=== PATIENT | male | born 1940 | race Caucasian/White ===

== ENCOUNTER 2017-06-21 11:36 | Observation (INO) | payer MEDICARE, OTHER ==
[2017-06-21 12:05] LABS: #Eosinphils 0.2 thou/uL (0.0-0.7); #Lymphocytes 1.2 thou/uL (1.20-3.40); #Monocytes 0.6 thou/uL (0.11-0.59); #Neutrophils 3.7 thou/uL (1.40-6.50); %Basophils 0.4 % (0.0-1.0); %Eosinophils 3.8 % (0.0-10.0); %Lymphocytes 20.4 % (21.0-51.0); %Monocytes 10.8 % (0.0-10.0); Hematocrit 38.8 % (42.0-52.0); Mean Platelet Volume 7.8 fL (7.4-10.4); Red Blood Cell (RBC) Count 3.96 mill/uL (4.70-6.10); White Blood Cell (WBC) Count 5.7 thou/uL (4.8-10.8)
--- NOTE | 2017-06-21 12:16 | RAD ---
RADIOGRAPH CHEST 1 VIEW: HISTORY: 77-year-old male with acute left sided chest pain. FINDINGS: There is hyperinflation of the lungs, consistent with COPD. The thoracic aorta is tortuous and ectat ic. There is no evidence of air space density, pneumothorax, or pulmonary edema. The lateral costop hrenic angles are sharp. There is no cardiomegaly. There are multiple old, healed left rib fracture d eformities. There are sternotomy wires. There are small regions of fibrotic, chronic interstitial den sities at the lateral aspects of the bilateral lung bases. IMPRESSION: 1) No acute pulmonary findings. 2) Emphysema. 3) Ectasia of thoracic aorta. 4) Evidence of previous open heart surgery. 5) Multiple old, healed left rib fracture deformities. 6) Chronic fibrotic changes at the bilateral lung bases. brittni POS: L[facility]
[2017-06-21 12:23] LABS: ALT (SGPT) 11 U/L (8-55); AST (SGOT) 19 U/L (5-34); Alkaline Phosphatase 81 U/L (40-150); Anion Gap 12 mmol/L (10-20); BUN (Urea Nitrogen) 18 mg/dL (8.4-25.7); Bilirubin, Total 0.5 mg/dL (0.2-1.2); CK (CPK) 134 U/L (30-200); Calc. Creatinine Clearance 0 mL/min (70-130); Calcium 9.3 mg/dL (7.8-10.44); Carbon Dioxide 30 mmol/L (23-31); Chloride 102 mmol/L (98-107); Estimated GFR-MDRD 69; Globulin 3.1 g/dL (2.4-3.5); Protein, Total 7.2 g/dL (5.8-8.1)
[2017-06-21 15:15] LABS: Troponin I 0.013 ng/mL (< 0.028)
[2017-06-21] MEDS ORDERED: Ondansetron ODT 4 MG TAB PO PRN (15:47)
[2017-06-21] MEDS ORDERED: Bisacodyl 5 MG TAB PO PRN (15:47)
[2017-06-21] MEDS ORDERED: Ondansetron HCl/PF 4 MG/2 ML Vial IVP PRN (15:47)
[2017-06-21] MEDS ORDERED: Nitroglycerin 0.4 MG TAB (25 Tab Bottle) PO PRN (15:47)
[2017-06-21 16:10] VITALS: BMI 23.3
[2017-06-21] MEDS ORDERED: Aspirin 325 MG TAB PO SCH (16:15)
[2017-06-21] MEDS: hydrALAZINE 20 MG/ML VIAL SLOW IVP PRN (16:16)
--- NOTE | 2017-06-21 19:28 | HP ---
PRIMARY CARE PHYSICIAN: Fatemeh Sarmiento M.D. PRIMARY PRODUCTION PLANNING MANAGER: Dr. Hui. CHIEF COMPLAINT: Chest pain. HISTORY OF PRESENT ILLNESS: This is a 77-year-old white male with a known history of coronary artery disease, who had a CABG done in 2011, 4 vessels. He has not had any problems with his heart since , but until the last 2-3 months the patient started having episodes of chest pain, left-sided, sha rp in nature and typically lasting less than 30 minutes, he has been getting these every 1-2 weeks. Does not seem to be influenced by rest or activity, then 3 days ago on Tuesday the patient was sitti ng down and watching TV and had a sudden onset of left-sided chest pain, stabbing pain from the anter ior lower left chest and then radiating up into the left axilla. The pain was persistent, lasted abo ut 30 minutes, associated with nausea with vomiting once and with breaking out into a profuse sweat, this eventually resolved, his daughter want him to go to the emergency room, but then he decided to s jessica home. He did not really have any episodes on Tuesday, he had another episode on Tuesday and then t his morning the patient had a repeat episode then again had nausea and vomiting and he decided to com e into the Dr. Hui's office. Dr. Hui was not there and the office staff told him to go str aight to the emergency room. In the ER, he had some improvement in his chest pain, uncertain it was related to the medications given. Now, he is just having hiccups. His EKG did not show any acute ch anges, just a right bundle branch block. His first cardiac marker set was negative. PAST MEDICAL HISTORY: 1. Coronary artery disease. 2. Carotid stenosis. 3. Benign prostatic hyperplasia. 4. Hypertension. 5. Hyperlipidemia. 6. Some question of atrial fibrillation, it was told by the nurse at Dr. Hui's office that he h ad atrial fibrillation, but he had never been told that before and he came to the ER. 7. Chronic low back problems from multiple traumas. PAST SURGICAL HISTORY: 1. CABG x4 vessels in 2011. 2. Prostate resection in 2011. 3. Right carotid endarterectomy in 2011. ALLERGIES: PENICILLIN causes severe problems with his mouth and throat. CURRENT MEDICATIONS: 1. Lisinopril 10 mg daily. 2. Metoprolol 50 mg extended release daily. 3. Docusate 50 mg daily. 4. Protonix 40 mg daily. 5. Tamsulosin 0.4 mg daily. 6. Atorvastatin 40 mg daily. 7. Centrum Silver 1 tablet daily. 8. Aspirin 81 mg daily. SOCIAL HISTORY: The patient smoked for about 15 years and quit in 1970s. 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 No alcohol or illicit drug use. FAMILY HISTORY: One brother from Alzheimer's, one brother from heart attack in his 60s. REVIEW OF SYSTEMS: Constitutional: No fevers, no chills, no weight changes. Eyes: No double visio n or blurred vision. He has chronic poor eyesight. ENT: No congestion, drainage or sore throat. C ardiovascular: See HPI. No palpitations. Pulmonary: No wheezing or shortness of breath. He does have chronic what he considered as allergic cough, worse at night. Gastrointestinal: Previously had nausea and vomiting, not now. No abdominal pain, no dyspepsia, no diarrhea. He does have chronic c onstipation. Genitourinary: No dysuria or hematuria. Musculoskeletal: The patient has chronic mus jazzmine aches and joint pains all over as worse in his back. He also reports that he has some problems w ith weakness in his left leg since an injury years ago and stumbles and falls sometimes. Skin: No r ashes or other lesions that he has noticed. Neurologic: No numbness, tingling or focal weakness. PHYSICAL EXAMINATION: VITAL SIGNS: Blood pressure 176/105, pulse 62, respirations 18, O2 sat 100% on room air, temperature 98.0. GENERAL: This is a well-developed, well-nourished, white male, in no apparent distress. HEENT: Eyes: Pupils are equal, round, and reactive to light. Oropharynx is clear without lesions, erythema or exudate. NECK: Supple, no lymphadenopathy, no thyroid nodules or enlargement, no JVD. HEART: Regular rate and rhythm, no murmurs, rubs or gallops. LUNGS: He has bilateral dry crackles in the bases and occasional expiratory wheezes scattered throug hout. No increased work of breathing. ABDOMEN: Soft, nontender to palpation, normoactive bowel sounds, no hepatosplenomegaly or other mass es. EXTREMITIES: No clubbing, cyanosis or edema. SKIN: No rashes or other lesions. NEUROLOGIC: Cranial nerves intact and equal bilaterally. No facial droop. Deep tendon reflexes are 2+ in all extremities. The patient does have mild decreased strength in his left lower extremity, w hich he states is chronic. PSYCHIATRIC: Alert and oriented x3, normal mood and affect. Normal insight and judgment. LABORATORY DATA: CBC with a hemoglobin of 13, hematocrit of 38, the remainder is normal. Complete m etabolic panel is within normal limits. Cardiac marker set negative x2. EKG: I did review the EKG done in the emergency room, it does show normal sinus rhythm with left axis deviation and a right bun dle branch block. No significant ST elevation or depression. Chest x-ray: I did review the chest x -ray done in the emergency room along with the radiologist's report, it does show hyperinflation of t he lungs consistent with COPD and emphysema. There is multiple old healed left rib fractures, some c hronic fibrotic changes in the bases of the lungs and then a previous open heart surgery with sternot ric wires, no pneumonia or acute changes visualized. ASSESSMENT AND PLAN: 1. Chest pain. The patient does have a history of coronary artery disease with previous bypass. Gi juan the diaphoresis, nausea and vomiting with this chest pain is concerning for acute coronary syndro me. The patient has negative enzymes thus far. His chest pain is currently resolved. He will need a Cardiology consult on either stress test or catheterization that worked this up. We will consult Yossi Dsouza, who is cardiac rehabilitation program director for Dr. Hui. 2. Known coronary artery disease with coronary artery bypass graft. We will put patient on daily as pirin and we will resume his home medications. 3. Hypertension, currently uncontrolled. We will resume patient's home blood pressure medications a nd add p.r.n. as needed. 4. Hyperlipidemia. We will resume patient's atorvastatin. 5. Gastrointestinal prophylaxis. Put the patient on Pepcid twice a day. 6. Deep venous thrombosis prophylaxis. Put the patient on sequential compression devices and TEDs a long with low dose Lovenox. 7. Code status: The patient is FULL CODE. Should he be incapacitated, he states that his daughter would be his medical decision maker. Her name is Tahira Cuadra.
[2017-06-21] MEDS: Famotidine 20 MG TAB PO SCH (20:13)
[2017-06-21] MEDS: Atorvastatin Calcium 40 MG TAB PO SCH (20:13)
[2017-06-21] MEDS: Docusate 100 MG CAP PO SCH (20:13)
[2017-06-21] MEDS ORDERED: Lisinopril 10 MG TAB PO SCH (20:15)
--- NOTE | 2017-06-21 21:54 | CON ---
DATE OF CONSULTATION: 06/21/2017 HISTORY OF PRESENT ILLNESS: Patient is a pleasant 77-year-old gentleman with a history of coronary artery disease and coronary bypass graft surgery who presents for evaluation of recurrent chest discomfort. The patient in 2011, was found to have severe coronary artery disease. He underwent cardiac catheterization and subsequent coronary bypass graft surgery x4. He had a VINSON placed to the LAD, a saphenous vein graft to the right coronary artery and posterior descending artery. The patient has subsequently been on medical therapy. He had been doing well until he had an episode a few days ago of left- sided chest discomfort. This lasted approximately 15 minutes and was associated with diaphoresis and dyspnea. The patient states that occurred at rest. He did not seek medical attention. Today, the patient had another similar episode that once again lasted approximately 15 minutes. The patient once again was described as left-sided and associated with diaphoresis. Patient denies having any present chest discomfort. PAST MEDICAL HISTORY: 1. Coronary artery disease. 2. History of postoperative atrial fibrillation. 3. Hypertension. 4. Dyslipidemia. 5. Cerebrovascular disease. PAST SURGICAL HISTORY: Coronary bypass graft surgery and carotid endarterectomy. ALLERGIES: PENICILLIN. SOCIAL HISTORY: He is a former smoker. MEDICATIONS ON ADMISSION: Aspirin 81 daily, Lipitor 40 at bedtime, metoprolol 50 XL daily, Protonix 40 daily, Flomax 0.4 daily, Colace 50 daily, lisinopril 10 daily. REVIEW OF SYSTEMS: Ten-point system otherwise unremarkable. PHYSICAL EXAMINATION: GENERAL: Well-developed gentleman in no acute distress. VITAL SIGNS: Blood pressure 218/118. NECK: Showed no jugular venous distention. LUNGS: Clear to auscultation. HEART: Regular rate and rhythm. Normal S1, S2 with a 1/6 holosystolic murmur. ABDOMEN: Nondistended. EXTREMITIES: Showed trace edema. SKIN: Warm and dry. NEUROLOGIC: Nonfocal. VASCULAR: Radial pulses 2+. LABORATORY DATA: White blood count 5.7, hemoglobin 13.0, hematocrit 38.8, platelets were 156. Sodium was 140, potassium 4.2, chloride 102, bicarbonate 30 , BUN 18, creatinine 1.04, troponin 0.013. EKG revealed a normal sinus rhythm, right bundle branch block, left axis deviation. IMPRESSION: 1. Malignant hypertension. 2. Chest pain suggestive of unstable angina. 3. History of coronary bypass graft surgery x4. 4. History of postoperative atrial fibrillation. 5. History of cerebrovascular disease. 6. Dyslipidemia. This gentleman presents with chest discomfort, highly suggestive of angina. He did have a markedly elevated blood pressure. His cardiac enzymes reveal no evidence of myocardial infarction. The patient will be admitted. He will be treated with aspirin, and he will be placed on antihypertensive medications. Further evaluation will be obtained through repeat stress testing or invasive evaluation. We will follow this patient with you through his hospitalization. DEVORAH
[2017-06-22] MEDS: hydrALAZINE 20 MG/ML VIAL SLOW IVP PRN (03:52)
[2017-06-22 04:26] LABS: #Eosinphils 0.2 thou/uL (0.0-0.7); #Lymphocytes 1.3 thou/uL (1.20-3.40); #Monocytes 0.4 thou/uL (0.11-0.59); #Neutrophils 2.7 thou/uL (1.40-6.50); %Basophils 0.5 % (0.0-1.0); %Eosinophils 4.6 % (0.0-10.0); %Lymphocytes 28.4 % (21.0-51.0); %Monocytes 8.8 % (0.0-10.0); Hematocrit 38.2 % (42.0-52.0); Mean Platelet Volume 8.1 fL (7.4-10.4); Red Blood Cell (RBC) Count 3.92 mill/uL (4.70-6.10); White Blood Cell (WBC) Count 4.7 thou/uL (4.8-10.8)
[2017-06-22 04:35] LABS: Anion Gap 10 mmol/L (10-20); BUN (Urea Nitrogen) 14 mg/dL (8.4-25.7); Calc. Creatinine Clearance 72 mL/min (70-130); Calcium 9.1 mg/dL (7.8-10.44); Carbon Dioxide 26 mmol/L (23-31); Chloride 106 mmol/L (98-107); Estimated GFR-MDRD Greater than 90
[2017-06-22] MEDS ORDERED: Communication Order-Pharmacy FS SCH (07:00)
[2017-06-22] MEDS ORDERED: Heparin 1000 UNIT/NS 500ML(OR) 1,000 ML ONE (07:16)
[2017-06-22] MEDS ORDERED: Heparin 10,000 UNITS/1 ML VIAL ONE (07:19)
--- NOTE | 2017-06-22 07:39 | PDOC.PN ---
- Subjective Encounter Start Date: 06/22/17 Encounter Start Time: 07:20 Subjective: Patient reports no more chest pain overnight. No N/V. - Objective Resuscitation Status: Resuscitation Status FULL:Full Resuscitation MAR Reviewed: Yes Vital Signs & Weight: Vital Signs (12 hours) Temp Pulse Resp BP BP Pulse Ox 06/22/17 04:49 134/79 06/22/17 03:52 65 178/103 H 06/22/17 03:40 97.5 F L 65 18 178/103 H 96 06/21/17 23:00 98.3 F 58 L 16 113/67 93 L 06/21/17 20:13 184/107 H 06/21/17 20:10 98.2 F 75 18 Weight Weight 149 lb I&O: 06/21/17 06/22/17 06/23/17 06:59 06:59 06:59 Intake Total 710 Output Total 150 Balance 560 Result Diagrams: 06/22/17 03:45 06/22/17 03:45 Phys Exam - Physical Examination Constitutional: NAD HEENT: moist MMs Respiratory: no wheezing, no rales, no rhonchi Cardiovascular: RRR, no significant murmur Gastrointestinal: soft, positive bowel sounds Neurological: non-focal, moves all 4 limbs Psychiatric: normal affect, A&O x 3 Dx/Plan (1) Chest pain Code(s): R07.9 - CHEST PAIN, UNSPECIFIED Status: Resolved Qualifiers: Ischemic chest pain type: unstable angina pectoris (2) Coronary artery disease Code(s): I25.10 - ATHSCL HEART DISEASE OF [place] CORONARY ARTERY W/O ANG PCTRS Status: Chronic (3) Hx of CABG Status: Chronic (4) Hypertension Code(s): I10 - ESSENTIAL (PRIMARY) HYPERTENSION Status: Chronic Qualifiers: Hypertension type: essential hypertension Qualified Code(s): I10 - Essential (primary) hypertension Comment: Labile overnight (5) Hyperlipidemia Code(s): E78.5 - HYPERLIPIDEMIA, UNSPECIFIED Status: Chronic - Plan cont current plan of care Cath today by Dr. Hui * . - Discharge Day Encounter end time: 07:40
[2017-06-22] MEDS: Sodium Chloride 0.9% 1,000 ML IV SCH ×2 (07:40→17:30)
[2017-06-22] MEDS ORDERED: Fentanyl 100 MCG/2 ML VIAL ONE (08:00)
[2017-06-22] MEDS ORDERED: Midazolam HCl 2 mg/2 ml Vial ONE (08:00)
[2017-06-22] MEDS ORDERED: DOPamine 400 MG/D5W 250 ML 250 ML ONE (08:17)
[2017-06-22] MEDS ORDERED: Atropine Sulfate 1 mg/10 ml Syringe ONE (08:23)
[2017-06-22] MEDS ORDERED: Ondansetron HCl/PF 4 MG/2 ML Vial ONE (08:23)
[2017-06-22] MEDS ORDERED: Protamine Sulfate 50 MG/5 ML VIAL ONE (08:51)
[2017-06-22] MEDS ORDERED: Aspirin 325 MG TAB PO SCH (09:00)
[2017-06-22] MEDS ORDERED: Enoxaparin Sodium 40 MG/0.4 ML SYRINGE SC SCH (09:00)
[2017-06-22] MEDS: Lisinopril 10 MG TAB PO SCH (09:37)
[2017-06-22] MEDS: Aspirin 81 mg Enteric Coated Tablet PO SCH (09:38)
[2017-06-22] MEDS: Docusate 100 MG CAP PO SCH ×2 (09:38→19:51)
[2017-06-22] MEDS: Famotidine 20 MG TAB PO SCH ×2 (09:38→19:51)
[2017-06-22] MEDS ORDERED: traMADol HCl 50 MG TAB PO PRN (10:20)
[2017-06-22] MEDS ORDERED: Nitroglycerin 0.4 MG TAB (25 Tab Bottle) SL PRN (10:20)
[2017-06-22] MEDS ORDERED: Sodium Chloride 0.9% 200 ML IV SCH (10:30)
--- NOTE | 2017-06-22 10:59 | ULT ---
ABDOMINAL ULTRASOUND: Date: 06/22/17 HISTORY: Chest pain. COMPARISON: None. TECHNIQUE: Utilizing a multihertz transducer, sonographic imaging of the abdomen is performed in the longitudina l and transverse plane. FINDINGS: Pancreas is poorly defined due to bowel gas. Increased echogenicity of liver may be due to hepatic steatosis or hepatocellular disease. Limited ev aluation for hepatic masses and intrahepatic biliary dilatation. Right hepatic lobe measures 15.5 cm. Suboptimal evaluation of the right kidney. Grossly, no hydronephrosis. Right kidney measures 12.4 x 5.9 cm in longitudinal plane. Transverse images are markedly limited. Markedly limited evaluation of the left kidney. Grossly, no hydronephrosis. Superior to the left kidney, there appears to be a 10.8 cm anechoic focus which may represent a cyst. Evaluation is incomplete. Spleen measures 10.9 cm in maximum dimension. Common bile duct diameter is 0.6 cm. No sonographic evidence of cholelithiasis, gallbladder wall thic kening, or pericholecystic fluid. Negative Brady's sign. Main portal vein is patent. Appropriate direction of flow. IMPRESSION: 1. Markedly limited evaluation of the kidneys. Grossly, no hydronephrosis. There appears to be a lar ge cyst emanating from the upper pole of the left kidney, incompletely evaluated. 2. Increased echogenicity of the liver likely due to hepatic steatosis or hepatocellular disease. Co rrelate clinically. POS: L[facility]
[2017-06-22] MEDS ORDERED: Iopamidol 370 76% 50 ML VIAL FS ONE (15:31)
[2017-06-22] MEDS ORDERED: Iopamidol 370 76% 100 ML VIAL ONE (15:31)
[2017-06-22] MEDS: Atorvastatin Calcium 40 MG TAB PO SCH (19:51)
--- NOTE | 2017-06-22 22:08 | CT ---
CT HEAD NONCONTRAST 06/22/17 INDICATION: Fall with laceration. FINDINGS: There is age related parenchymal volume loss and moderate chronic microvascular ischemic disease, wit h compensatory dilatation of the ventricular system. No intracranial hemorrhage or mass effect or mid line shift. No depressed calvarial fracture or pneumocephalus. IMPRESSION: No acute intracranial abnormalities are identified. POS: [facility]
--- NOTE | 2017-06-23 07:39 | PDOC.PN ---
- Subjective Encounter Start Date: 06/23/17 Encounter Start Time: 08:00 Subjective: Patient without further chest pain. Fell last night when tried to get up -: without help while IV/monitors plugged in and got tangled. Hit head. No -: LOC. No neur sequela. CT brain neg. Feels fine this AM. - Objective Resuscitation Status: Resuscitation Status FULL:Full Resuscitation MAR Reviewed: Yes Vital Signs & Weight: Vital Signs (12 hours) Temp Pulse Resp BP BP Pulse Ox 06/23/17 04:36 97.9 F 74 20 108/69 95 06/22/17 23:38 97.9 F 65 16 164/109 H 93 L 06/22/17 20:50 97.5 F L 67 20 179/104 H 95 06/22/17 20:00 97.9 F 65 16 Weight Weight 149 lb 6.4 oz I&O: 06/22/17 06/23/17 06/24/17 06:59 06:59 06:59 Intake Total 710 480 Output Total 150 Balance 560 480 Result Diagrams: 06/22/17 03:45 06/22/17 03:45 Phys Exam - Physical Examination Constitutional: NAD HEENT: moist MMs Respiratory: no wheezing, no rales, no rhonchi, clear to auscultation bilateral Cardiovascular: RRR, no significant murmur Gastrointestinal: soft, positive bowel sounds Neurological: non-focal, moves all 4 limbs Psychiatric: normal affect, A&O x 3 Deviation from normal: mild partial skin lac to right post scalp Dx/Plan (1) Chest pain Code(s): R07.9 - CHEST PAIN, UNSPECIFIED Status: Resolved Qualifiers: Ischemic chest pain type: unstable angina pectoris (2) Coronary artery disease Code(s): I25.10 - ATHSCL HEART DISEASE OF [place] CORONARY ARTERY W/O ANG PCTRS Status: Chronic (3) Hx of CABG Status: Chronic (4) Hypertension Code(s): I10 - ESSENTIAL (PRIMARY) HYPERTENSION Status: Chronic Qualifiers: Hypertension type: essential hypertension Qualified Code(s): I10 - Essential (primary) hypertension Comment: Labile overnight (5) Hyperlipidemia Code(s): E78.5 - HYPERLIPIDEMIA, UNSPECIFIED Status: Chronic - Plan DVT proph w/SCDs Cath with CAD, no stents. Started on Ranexa. -: Home after ambulating well in hallways. Try to arrange home -: rolling walker. * . - Discharge Day Encounter end time: 08:30
[2017-06-23] MEDS: Aspirin 81 mg Enteric Coated Tablet PO SCH (09:26)
[2017-06-23] MEDS: Famotidine 20 MG TAB PO SCH (09:26)
[2017-06-23] MEDS: Lisinopril 10 MG TAB PO SCH (09:26)
[2017-06-23] MEDS: Docusate 100 MG CAP PO SCH (09:26)
[2017-06-23 12:29] VITALS: TEMP 97.4
--- NOTE | 2017-06-23 13:20 | DIS ---
PRIMARY CARE PHYSICIAN: Dr. Fatemeh Sarmiento PRIMARY PHOTOGRAPHIC PROCESSOR: Dr. Hui ADMISSION DIAGNOSES: 1. Chest pain. 2. Coronary artery disease with previous coronary artery bypass graft. 3. Hypertension. 4. Hyperlipidemia. DIAGNOSES ON DISCHARGE: 1. Angina, resolved. 2. Coronary artery disease with previous coronary artery bypass graft and a new disease in the graft s. 3. Hypertension. 4. Hyperlipidemia. CONSULTATIONS: Cardiology, Dr. Hui. PROCEDURES: Cardiac catheterization showing 3-vessel coronary artery disease, 4 of 4 grafts patent a nd progression of disease in the first diagonal and septal arteries. PERTINENT LABORATORY: Lipid profile within normal limits. Cardiac markers were negative. No other significant abnormalities. HOSPITAL COURSE: This is a 77-year-old white male with known history of coronary artery disease and a 4-vessel CABG done in 2011. He had been having 2-3 months of chest pain episodes left-sided, sharp in nature, lasting less than 30 minutes. He had a more severe episode associated with nausea and vo miting and profuse sweats and then got him to come into the emergency room. In the ER, he had an unc hanged EKG and negative cardiac markers. Dr. Dsouza was consulted for Dr. Hui and it is decid ed to bring him back to catheterization the next day. The patient had a cardiac catheterization with the above results. No stents or angioplasty were necessary. He was started on Ranexa and Dr. Armen perez cleared him for discharge. Of note, during the catheterization, the patient did have some hypote nsion that resolved with IV fluids and then later in the evening he decided to get out of bed without calling the nurse and got wrapped up in all of his IV and cords and did fall and hit his head. He h ad a CT scan that was negative and did not have any post-traumatic concussive symptoms and he was doi ng well the day of discharge. He was able to ambulate in the hallway. He is a little unsteady becau se of a previous back injury and so I am recommending that he get a rolling walker for home. Otherwi se, he is stable for discharge. DISCHARGE MANAGEMENT: Discharged home with home health to provide a rolling walker or his daughter c an go pick one up at a medical supply store. ACTIVITIES: As tolerated. DIET: Healthy heart, low sodium diet. DISCHARGE MEDICATIONS: Resume home medications. 1. Lisinopril 10 mg daily. 2. Colace 50 mg daily. 3. Tamsulosin 0.4 mg daily. 4. Protonix 40 mg daily. 5. Centrum Silver 1 tablet daily. 6. Metoprolol succinate 50 mg daily. 7. Atorvastatin 40 mg daily. 8. Aspirin 81 mg daily. 9. We are adding a new medicine Ranexa 500 mg twice a day for the next week and then he is to increa se to 1000 mg twice a day. Prescriptions for these by Dr. Hui. FOLLOWUP: The patient is to follow up in Dr. Hui's office, his appointment is on 08/29/2017 at 12:30 p.m.
[2017-06-23 17:59] VITALS: BP 149/84
== END 2017-06-23 13:42 | disposition home health service (06) ==
LOC: ERS 11:36 → 2SW 13:05
PROVIDERS: ADMIT Emergency Medicine; ATTEND Emergency Medicine
DX: I25.119 Atherosclerotic heart disease of native coronary artery with unspecified angina pectoris (principal); T82.9XXA Unspecified complication of cardiac and vascular prosthetic device, implant and graft, initial encounter; I10 Essential (primary) hypertension; E78.5 Hyperlipidemia, unspecified; M54.5 Low back pain; G89.29 Other chronic pain; Z77.090 Contact with and (suspected) exposure to asbestos; Z79.82 Long term (current) use of aspirin; Z79.899 Other long term (current) drug therapy; Z88.0 Allergy status to penicillin; Z95.1 Presence of aortocoronary bypass graft; Z90.79 Acquired absence of other genital organ(s); Z98.890 Other specified postprocedural states; Z86.79 Personal history of other diseases of the circulatory system; Z87.891 Personal history of nicotine dependence
CPT/HCPCS: 70450; 71010; 76700; 80048; 80053; 80061; 82550; 82553; 84484 ×2; 85025 ×2; 85347; 93005; 93459; 93798; 94760; 96374; 96376; 97116; 97139 ×4; 97530; 99285; C1769; G0378; G8978; G8979; G8987; G8988; 36415; 99152; 99153; A4216; J0360; J0461; J1265; J1644; J2250; J2405; J2720; J3010